=== PATIENT | male | born 1965 | race African-American/Black ===

== ENCOUNTER 2019-05-30 07:06 | Emergency (ER) | payer OTHER ==
[~2019-05-30] VITALS: Ht 165.1 cm; Wt 89.4 kg
[2019-05-30 08:26] LABS: ABSOLUTE NEUTROPHILS 2.8 thou/uL (1.4-8.2); BASOPHILS 1.8 % (0.0-2.0); EOSINOPHILS 1.3 % (0.0-3.0); HEMATOCRIT 41.4 % (42.0-52.0); HEMOGLOBIN 13.6 gm/dL (14.0-18.0); LYMPHOCYTES 33.4 % (24.0-44.0); MCH 32.2 pg (26.0-34.0); MCHC 32.8 g/dL (28.0-37.0); MCV 98.2 fL (80.0-100.0); MONOCYTES 8.4 % (1.0-8.0); PLATELET COUNT 263 thou/uL (150-400); POLYS 55.1 % (36.0-66.0); RBC 4.21 mil/uL (4.50-6.00); RDW 12.3 % (10.5-14.5)
[2019-05-30 08:29] LABS: ANION GAP 6 mmol/L (7-16); BUN 13 mg/dL (7-18); CHLORIDE 110 mmol/L (98-107); CO2 30 mmol/L (21-32); CREATININE 1.2 mg/dL (0.7-1.3); GLUCOSE 87 mg/dL (74-106); POTASSIUM 3.7 mmol/L (3.5-5.1); SODIUM 146 mmol/L (136-145)
[2019-05-30 08:38] LABS: LIPASE 93 U/L (73-393); TROPONIN-I <0.06 ng/mL (<0.06)
--- NOTE | 2019-05-30 08:43 | EKG ---
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
[2019-05-30 10:04] LABS: URINE BILIRUBIN NEGATIVE (Negative); URINE BLOOD NEGATIVE (Negative); URINE CLARITY CLEAR; URINE COLOR YELLOW; URINE GLUCOSE-RANDOM* NEGATIVE (Negative); URINE KETONES NEGATIVE (Negative); URINE LEUKOCYTES-REFLEX NEGATIVE (Negative); URINE NITRITE-REFLEX NEGATIVE (Negative); URINE PROTEIN (DIPSTICK) NEGATIVE (Negative); URINE SPECIFIC GRAVITY 1.015 (1.005-1.035); URINE UROBILINOGEN 0.2 E.U./dl (0.2-1.0)
[2019-05-30 11:39] VITALS: BP 112/76
== END 2019-05-30 11:39 | disposition home or self-care (01) ==
LOC: ER 07:06
PROVIDERS: Emergency Medicine
DX: R55 Syncope and collapse (principal); R10.32 Left lower quadrant pain

== ENCOUNTER → 2019-08-31 | Outpatient (CLI) | payer OTHER | LOC: SJCVCIMAG 13:36 | DX: I08.8 Other rheumatic multiple valve diseases (principal); R55 Syncope and collapse ==